=== PATIENT | female | born 1965 | race Caucasian/White ===

== ENCOUNTER 2017-09-28 14:45 | Outpatient (CLI) ==
--- NOTE | 2017-09-28 16:20 | DI ---
EXAM: Two views of the chest. History: Bronchitis. Comparison: None available. Findings: Heart size is normal. No focal consolidation. No appreciable pleural fluid and no pneumo thorax. No acute osseous abnormalities. Impression: No acute cardiopulmonary process
== END 2017-09-28 14:46 | disposition home or self-care (01) ==
LOC: RAD 14:45
PROVIDERS: ATTEND Family Medicine
DX: J40 Bronchitis, not specified as acute or chronic (principal)

== ENCOUNTER 2017-10-06 14:01 | Outpatient (CLI) ==
[2017-10-07 15:33] VITALS: BMI 32.8
== END 2017-10-06 14:02 | disposition home or self-care (01) ==
LOC: FCC-LAB 14:01
PROVIDERS: ATTEND Family Medicine
DX: R05 Cough (principal); J40 Bronchitis, not specified as acute or chronic; Z87.01 Personal history of pneumonia (recurrent)
CPT/HCPCS: 87804

== ENCOUNTER 2017-10-07 12:33 | Inpatient (IN) ==
--- NOTE | 2017-10-07 13:25 | ED.PDOC ---
General ED Provider: Dr. REJI JANE Chief Complaint: Respiratory Complaint Stated Complaint: cough, congestion Time Seen by Physician: 12:45 ( this is a chronic issue ) Mode of Arrival: Walk-In Information Source: Patient Exam Limitations: No limitations Primary Care Provider: JOSÉ ALSTON Nursing and Triage Documentation Reviewed and Agree: Yes Reviewed sepsis parameters & appropriate labs ordered?: Yes System Inflammatory Response Syndrome: Not Applicable Sepsis Protocol: For patient's 13 years and over: Temp is 96.8 and below OR 101 and greater Pulse >90 BPM Resp >20/minute Acutely Altered Mental Status Are patient's symptoms suggestive of a new infection, such as: -Pneumonia -Skin, Soft Tissue -Endocarditis -UTI -Bone, Joint Infection -Implantable Device -Acute Abdominal Infection -Wound Infection -Meningitis -Blood Stream Catheter Infection -Unknown System Inflammatory Response Syndrome: Not Applicable Respiratory Complaint Exam - Respiratory Complaint/Exam Onset/Duration: chronic worse today Symptoms Are: Resolved Timing: Intermittent Initial Severity: Mild Current Severity: Mild Location: Nose, Throat, Chest Character: Reports: Non-productive cough Aggravating: Reports: None Alleviating: Reports: Spontaneous resolution Associated Signs and Symptoms: Reports: URI, Nasal congestion. Denies: Rapid breathing, Dyspnea, Fever, Chills, Chest pain, Pleuritic chest pain, Wheezing, Hemoptysis, Dizziness, Calf pain, Calf swelling, Edema, Hoarseness, Sinus discomfort, Vomiting, Sore throat, Weight loss, Decreased oral intake, Increased thirst, Increased appetite, Increased urination Related History: Reports: Similar episode History of Healthcare-Acquired Pneumonia: No Related Surgical History: Reports: None Pulmonary Embolism Risk Factors: None Cardiac Risk Factors: Reports: None Pseudomonas Risk Factors: Reports: None Tuberculosis Risk Factors: Reports: None Status Asthmaticus Risk Factors: Reports: None Home Oxygen Use: No Recent Stress Test: No Recent Echo/LV Function: No Current Antibiotic Use: No Current Asthma Medication Use: No Respiratory Distress: None Inadequate Respiratory Effort: No Dysphagia Present: No Stridor Present: No JVD Present: No (onsteroid started today) Retractions: Not Present Diminished Breath Sounds: No Sinus Tenderness: None Differential Diagnoses: Pneumonia, Bronchitis, Lower Resp. Infection Review of Systems - Review Of Systems Constitutional: Reports: No symptoms Eyes: Reports: No symptoms Ears, Nose, Mouth, Throat: Reports: No symptoms Respiratory: Reports: Cough Cardiac: Reports: No symptoms GI: Reports: No symptoms : Reports: No symptoms Musculoskeletal: Reports: No symptoms Skin: Reports: No symptoms Neurological: Reports: No symptoms Endocrine: Reports: No symptoms Hematologic/Lymphatic: Reports: No symptoms All Other Systems: Reviewed and Negative Past Medical History - Past Medical History Previously Healthy: Yes Endocrine: Reports: None Cardiovascular: Reports: None Respiratory: Reports: None Hematological: Reports: None Gastrointestinal: Reports: None Genitourinary: Reports: None Neuro/Psych: Reports: None Musculoskeletal: Reports: None Cancer: Reports: None Last Menstrual Period: hysterectomy - Surgical History General Surgical History: Reports: None - Family History Family History: Reports: None - Social History Smoking Status: Never smoker Hx Substance Use: No Alcohol Screening: None Physical Exam - Physical Exam Appearance: Well-appearing, No pain distress, Well-nourished Eyes: MEHDI, EOMI, Conjunctiva clear ENT: Ears normal, Nose normal, Oropharynx normal Respiratory: Airway patent, Breath sounds clear, Breath sounds equal, Respirations nonlabored Cardiovascular: RRR, Pulses normal, No rub, No murmur GI/: Soft, Nontender, No masses, Bowel sounds normal, No Organomegaly Musculoskeletal: Normal strength, ROM intact, No edema, No calf tenderness Skin: Warm, Dry, Normal color Neurological: Sensation intact, Motor intact, Reflexes intact, Cranial nerves intact, Alert, Oriented Psychiatric: Affect appropriate, Mood appropriate Interpretation - Radiology Interpretation Radiology Interpretation By: Radiologist Physician Notification - Case Discussed Physician Notified: PMD Time of Notification: 13:39 (STATED PLEASE SEND TO OFFICE NOW) Critical Care Note - Critical Care Note Total Time (mins): 0 Course - Course Hematology/Chemistry: 10/07/17 13:05 10/07/17 13:05 Orders, Labs, Meds: Lab Review 10/07/17 10/07/17 10/07/17 13:00 13:05 13:05 WBC 13.73 H RBC 4.41 Hgb 13.0 Hct 39.4 MCV 89.3 MCH 29.5 MCHC 33.0 RDW Coeff of Isaias 13.5 Plt Count 274 Immature Gran % (Auto) 0.7 Neut % (Auto) 83.2 Lymph % (Auto) 11.1 [place] % (Auto) 4.5 Eos % (Auto) 0.1 Baso % (Auto) 0.4 Immature Gran # (Auto) 0.1 Neut # (Auto) 11.4 H Lymph # (Auto) 1.5 [place] # (Auto) 0.6 Eos # (Auto) 0.0 Baso # (Auto) 0.1 Puncture Site R rad O2 Saturation 98.0 ABG pH 7.567 H* ABG pCO2 23.0 L ABG pO2 80.0 L ABG HCO3 20.9 L ABG Total CO2 22 ABG Base Excess -1 Edmundo Test + FiO2 % 21.0 Sodium 137 Potassium 4.4 Chloride 102 Carbon Dioxide 21 Anion Gap 18.4 BUN 16 Creatinine 1.50 H Estimated GFR (MDRD) 36.00 BUN/Creatinine Ratio 10.66 Glucose 326 H Calcium 10.0 Total Bilirubin 0.9 AST 61 H ALT 55 Alkaline Phosphatase 119 H Total Protein 8.3 H Albumin 3.6 Globulin 4.7 Albumin/Globulin Ratio 0.77 Orders Category Date Time Status ABG DRAW REQUEST Stat CARDIO 10/07/17 12:51 Completed ABG Stat LAB 10/07/17 13:00 Completed CBC W/ AUTO DIFF Stat LAB 10/07/17 13:05 Completed COMPREHENSIVE METABOLIC PANEL Stat LAB 10/07/17 13:[address] CHEST W/O CONTRAST Stat RADS 10/07/17 12:55 Taken Vital Signs: Temp Pulse Resp BP Pulse Ox 10/07/17 12:34 97.2 F L 79 20 122/85 97 Departure - Departure Time of Disposition: 14:20 (02 sat 98% , abg negative for hypoxia , steroids was started by PMD today ) Disposition: HOME SELF-CARE Discharge Problem: Cough Instructions: Chronic Cough (ED) Condition: Good Pt referred to PMD for follow-up: Yes IPMP verified?: No Additional Instructions: Please call your Family Physician as soon as possible to schedule a follow-up appointment. SEE YOUR MD BRENNON Allergies/Adverse Reactions: Allergies ciprofloxacin [From Cipro] Adverse Reaction (Severe, Verified 10/07/17 12:40) rash,shsortness off air, headache Breathing problems, rash, headache. ciprofloxacin HCl [From Cipro] Adverse Reaction (Severe, Verified 10/07/17 12:40 ) rash, shortness of air Breathing problems, rash, headache. cephalexin monohydrate [From Keflex] Adverse Reaction (Verified 10/07/17 12:40) Breathing problems, headaches, rash Penicillins Adverse Reaction (Verified 10/07/17 12:40) Breathing problems, headache, rash Home Medications: Ambulatory Orders Oxycodone HCl/Acetaminophen [Oxycodon-Acetaminophen 7.5-325] 1 each PO TID 09/28 Oxycodone HCl/Acetaminophen [Oxycodone-Acetaminophen 10-325] 1 each PO BEDTIME 09/28/17 Pantoprazole Sodium [Protonix] 40 mg PO BID 09/28/17 Albuterol Sulfate [Proair Hfa] 2 puff IH Q4H PRN 10/07/17 Metformin HCl 500 mg PO DAILY 10/07/17 Tiotropium [place] [Spiriva] 2 puff IH DAILY 10/07/17 Disposition Discussed With: Patient, Family
[2017-10-07] MEDS ORDERED: DUONEB NEB STA (13:40)
[2017-10-07] MEDS ORDERED: TUSSIONEX PO STA (13:41)
[2017-10-07] MEDS ORDERED: TUSSIONEX ONE (13:42)
--- NOTE | 2017-10-07 13:42 | CT ---
EXAM: CT chest without contrast. HISTORY: Shortness of breath, cough, fever. COMPARISON: Radiograph 09/28/2017. TECHNIQUE: Multiple axial images of the chest were obtained without intravenous contrast. Images we re reformatted in the sagittal and coronal planes. FINDINGS: Evaluation for lymphadenopathy is limited by lack of intravenous contrast. Heart size is normal. No pericardial effusion identified. Ground-glass opacities with a few nodular foci of consolidation are seen in the posterior left lower lobe near the diaphragm. Mild ground-glass opacities seen in the posterior right lower lobe. No ple ural effusion or pneumothorax identified. Limited images of the upper abdomen demonstrate fatty infiltration of the liver. No acute osseous ab normality is detected. IMPRESSION: Left lower lobe, and possibly right lower lobe, pneumonia. Follow-up chest CT within 3 months recomm ended to assess for resolution.
[2017-10-07] MEDS ORDERED: PERCOCET 7.5-325 PO SCH (15:00)
[2017-10-07 15:33] VITALS: BMI 32.8
[2017-10-07] MEDS: PROTONIX PO SCH (16:09)
[2017-10-07] MEDS: PERCOCET 7.5-325 PO PRN (16:09)
--- NOTE | 2017-10-07 16:21 | PCM ---
- Chief Complaint Chief Complaint: 52 yr old WF admitted to inpatient bed for bilateral lower lobe pneumonia, multiple abx allergies, DM 2 uncontrolled, AKD, Obesity BMI 32.8. Complicated by chronic low back pain, chronic opiate use. GERD. Worsening cough. Worsening SOA. - History of Present Illness History of Present Illness: 52 yr old WF admitted to inpatient bed for bilateral lower lobe pneumonia, multiple abx allergies, DM 2 uncontrolled, AKD, Obesity BMI 32.8. present in room. Permission given to speak freely. The patient was last seen in my office 10/06/17 for worsening cough. Previously seen in my office on . History of the acute illness listed below. The patient was seen in the ER today and was admitted after CT chest showed Bilateral lower lobe pneumonia. She does not meet SIRS criteria. ER called me with WBC 13K w/ prominent neutrophilia, just started a steroid in last 24 hours. She is on doxy from an Rx that was given previously. Non smoker. She presented to me initially on 09/28 with URI. Dx initially early July w/ fever, cough, intermittently productive. Tested for flu and negative at that time. In fact, she reported that her sx were present since 2016. She was started with abx for treatment of possible pneumonia at that time by [facility] in [place] (We will try to get these records, called 10/07/17 3:58 pm and they are faxing) Patient told me at my last OV that she was dx via X-ray and was started on keflex for her pneumonia, she had an abnl GI reaction to this. Stomach upset, nausea and diarrhea. She told me that Pain management provider was upset by the abx and started her on doxycycline and she was on this for 7 days. She is allergic to Cipro/levaquin, she has done okay with erythromycin historically and we had talked about possible z felix for pulmonary inflammation. She completed the 7 day course of doxycycline BID, which was completed 08/11/17. Until she saw me on 09/28/17, she had not had any other f/u but sx never improved fully. She was on albuterol, this did not help. She reported inability to use steroids due to sugars/elevation/spikes. She noted >600 w/ last round steroids and prominent elevated sugars, hard to control. She presented to my office with 5 day history of worsening wheezing, URI and trouble breathing, declined steroids. Rhinorrhea, non tobacco user, sick with URI, sore throat, rhinorrhea, cough, sneezing as well. Talked in complete sentences. Repeated CXR on 09/28/17 and negative. Denied PND, orthopnea, COLE and hemoptysis. We added flonase. We talked about her DM and she noted improvement /stability. Only on metformin. Last A1C 7.5 06/2018. Reviewed her goal to be A1C of <7.0. She was dx with bronchitis, History of pneumonia, We reviewed heckerling rule and score of 0 points with LR of 0.12 and post test probability of 1% or less pneuomonia. We repeated CXR to rule this out. Modified wells criteria reviewed and low risk of PE. NO D-dimer was ordered. SHe was given Rx for spiriva Respimate, R/B/A to this was d/w her and she left office ambulatory. Exam mostly negative BMI 33.5, Temp 98.3, Pulse 72, BP 136/84 PO2 97%. She returned to my office 10/06/17 (yesterday) worsened and had started doxy from the pharmacy, which is reasonable. I discussed pneumonia is better treated with cephalosporin and doxy (or zithromax) and that she just wanted to use doxy. Cough f/u worsening, using spiriva 2 buffs daily as recommended, which did help quite a bit with her cough. She still is having wheezing. WE talked about steroids, she was worried about her BG. She really did not want oral GC but agreed. We again talked about changing abx around, she did not want this. Discussed ?cough variant asthma. Again non smoker. She did not want admission to hospital. We discussed IM decadron. We discussed prednisone and R /B/A to both and she chose prednisone. We increased her albuterol to q 4 hours use, we added prednisone 20mg daily x 5 days. I gave an Rx sample for jardiance with R/B/A and detailed discussion of risks to include DKA, Urinary infections and mycotic processes. Lungs with findings consistent with continued bronchitis , no consolidation, no PND, no orthopnea, normal full sentence conversations. Vitals yesterday pulse 82, temp 98.4, bmi 33.4, RR 16, 02 93% initially on RA, 91 after conversation. We talked about this and she did not want to go to hospital. Exam with cough, bronchial findings. We talked about the abx, we reviewed heckerling rule again and now has 3 points consistent with ~8% chance of pneumonia. We talked about repeat CXR. Talked about multiple abx allergies. I discussed monitor on doxy consider repeat CXR vs CT scan. Allergy to keflex. We gave short course of jardiance. Reviewed this with her added prednisone 20mg daily. She presented to ER today. Dr. Rea saw her in Er, called me with anxious patient with suspected bilateral pneuomnia. She was admitted to the floor, telemetry. Her breathing is unchanged from 09/28 and 10/06 visits. No peripheral edema. No overt SOA, still without chest pain. Lab Review: 1. CBC showed small white blood cell count elevation of 13.66 w/ neutrophilia, likely demargination from steroids. No anemia, normal platelets 2. Metabolic profile showed hyperglycemia of 326, Creatinine of 1.5 which is mildly OSCAR. Creatinine was 1.01 with GFR of 60 on 04/07/17. Sodium 137, K+ 4.4 , Cl 102, Gap of 18.4. alkaline phosphatase midlly elevated at 110. ast mild elevation of 61. 3. ABG showed pH 7.567, ABG pC02 23, Po2 80, Hc03 20.9. 4. Flu A/B rapid negative 10/06/17 Imaging Review: CT Chest 10/07/17 possible left and right lower lobe pneumonia CXR 09/28/17 No acute cardiopulmonary process Old records: [facility] [place] CXR 07/30/17 No pneumonia. Records from [facility] obtained. Presented 07/29/17 cough, non productive, wheezing on suraj as noted above. Pain management stated Ride side pneuomnia and needed to go to Er. Sudden onset. Delsym used. Chest discomfort. Fam hx of asthma, fatigue, fever. Dx pneumonia and given Rx for keflex 500 TID. WBC 12.0 Neutrophils 7.6 07/30/17. Review of Systems: Constitutional: COMPLAINS OF: Appetite change, Fatigue, Fever (intermittent, controlled.), DENIES: Excessive sweating, Night sweats, Weight gain, Weight loss Eyes: DENIES: Blurred vision, Corrective lenses, Diplopia, Eye irritation, Eye pain, Spots in vision, Vision loss Ears, nose, mouth, throat: COMPLAINS OF: Hoarseness, Nasal Congestion, Nasal discharge, Postnasal drainage, Sneezing, Sore throat, DENIES: Bleeding gums, Dental pain, Ear pain, Facial pain, Hearing loss, Mouth lesions, Nasal obstruction, Nosebleeds, Swelling gums, Tender gums, Tinnitus, Vertigo Other ear, nose, mouth, throat Ear pressure, without pain Cardiovascular: DENIES: Chest pain, Claudication, Decr. exercise tolerance, Exertional dyspnea, Leg ulcers, Orthopnea, Palpitations, Peripheral edema, Syncope Respiratory: COMPLAINS OF: Cough, Pleuritic pain (Bilateral lower lobes. Prominent cough, sputum production. NO hemoptysis. ), Shortness of breath, Sputum production, Wheezing, DENIES: Apneas, Hemoptysis, Snoring Gastrointestinal: COMPLAINS OF: Abdominal pain (mild with coughing), DENIES: Black stools, Bloating, Bloody stools, Change in bowel habits, Constipation, Diarrhea, Dysphagia, Food intolerance, Nausea, Reflux/heartburn, Vomiting Musculoskeletal: COMPLAINS OF: Back pain (chronic back pain, chronic pain in left hip. Chronic antalgic gait. Due for surgery in next few months. ), DENIES: Joint pain, Joint swelling, Limited range of motion, Muscle aches, Muscle weakness, Neck Pain, Stiffness Neurologic: COMPLAINS OF: Abnormal gait, Headache (worse with coughing), DENIES : Dizziness, Focal weakness, Incoordination, Memory problems, Numbness, Seizures , Slurred speech, Tremor Psychiatric: COMPLAINS OF: Anxiety, Sadness/tearfulness, Fear, Sleep Disturbances DENIES: Decreased concentration, Irritability, Panic attacks Endocrine: DENIES: Abnorml menstrual pattern, Polydipsia, Polyphagia, Polyuria Hematologic/lymphatic: DENIES: Bleeding tendencies, Bruising, Lymphadenopathy, Recurrent infections Allergic/immunologic: DENIES: Eczema, Seasonal allergies, Urticaria - Past Medical History Past Medical History: Chronic Back pain, DM 2 uncontrolled, Exposure to Hep C, GERD, Obesity BMI 32. - Past Surgical History Past Surgical History: Appendectomy, back surgery x 2, cholecystectomy, hysterectomy, lumbar laminectomy 06/2016. - Allergies Allergies/Adverse Reactions: Allergies Allergy/AdvReac Type Severity Reaction Status Date / Time ciprofloxacin [From Cipro] AdvReac Severe rash,shsortness Verified 10/07/17 12: 40 off air, headache ciprofloxacin HCl AdvReac Severe rash, Verified 10/07/17 12:40 [From Cipro] shortness of air cephalexin monohydrate AdvReac Abdominal Verified 10/07/17 14:19 [From Keflex] Pain Penicillins AdvReac Unknown Verified 10/07/17 14:19 - Medications Medications: Medications Generic Name Dose Route Start Last Admin Trade Name Freq PRN Reason Stop Dose Admin Albuterol/Ipratropium 1 vial 10/07/17 18:00 Duoneb NEB RTQ6H DARREL Non-Formulary Medication 15 mg 10/07/17 21:00 Oxycodone Hcl [Oxycontin] PO BEDTIME DARREL Oxycodone/Acetaminophen 1 tab 10/07/17 15:36 Percocet 7.5-325 PO TID PRN pain Pantoprazole Sodium 40 mg 10/07/17 17:00 Protonix PO BIDAC DARREL - Family History Past Family History: Mother CAD. Father No known problems. Sister CAD, Diabetes. Sister Hyperlipidemia. Brother Alcohol Abuse. MGM Diabetes, Heart disease, stroke. MGF No known medical problems. PGM DM, HTN,. PGF Cancer - Social History Past Social History: never smoker. . [employer]. - Vital Signs Temperature: 97.4 F Pulse Rate: 60 Respiratory Rate: 20 Blood Pressure: 122/85 O2 Sat by Pulse Oximetry: 95 - Body Composition Height: 5 ft 8 in Weight: 216 lb Body Mass Index (BMI): 32.8 - Physical Examination HEENT: General Details Constitutional General appearance: subacute illness, unchanged from my last OV 10/06/17. Nutritional status: Overweight BMI 32.8 Orientation: alert and oriented x4 Skin Skin: Positive: dry, normal color, warm, Negative: skin rash Head, Eyes, Ears, Nose, Throat Head: normocephalic/atraumatic Eyes: PERRL, conjunctivae clear, EOM intact, no nystagmus Eyes - details: Left eyelid: FINDINGS: normal Right eyelid: FINDINGS: normal Left conjunctiva: FINDINGS: normal Right conjunctiva: FINDINGS: normal Ears, nose, mouth, throat: no ear deformities, no otic drainage, normal nostrils, TM mobility normal, TMs normal, no sinus tenderness Ears: Left ear deformity: none Right ear deformity: none Left external auditory canal: FINDINGS: Right external auditory canal: FINDINGS: Left tympanic membrane: FINDINGS: normal,normal, minimal fluid most visible anterior segment/quadrant. Right tympanic membrane: FINDINGS: normal, normal, minimal fluid most visible anterior segment/quadrant. Nose/sinuses: Nasal cavity: FINDINGS: boggy, erythema, normal, clear drainage. Nasal discharge: FINDINGS: clear Sinuses: NEGATIVE FOR: frontal tenderness, maxillary tenderness Neck Neck: FINDINGS: normal, NEGATIVE FOR: adenopathy, asymmetry, limitation of motion, tenderness, thyroid abnormality Respiratory Details: Coarse sounding aeration throughout lung abdi. No egophany, no whispered pectoriloquy. She has no tactile fremitus. Prominent coarse sounds, adventitious sounds, mucus plugging, some improvement post cough. Respiratory effort: FINDINGS: audible wheeze (upper and lower airway), no stridor. No inspiratory wheeze. NEGATIVE FOR: still without labored breathing, not using pursed lips, no retractions, no stridor, no use accessory muscles Auscultation: FINDINGS: diminished throughout, rhonchi, wheezes, +Rales but scattered. (+SHE HAS STARTED DOXYYCLINE) Percussion: FINDINGS: normal Tactile fremitus: absent Sounds and cough still seem to be mostly present within the upper airway, I still did not appreciate a pneumonia on this patient. RR normal, O2 saturation mildly diminished but still >90. HR fine and BP fine. <3% chance of pneumonia based on vitals. Cardiovascular Rhythm: regular Heart sounds: NORMAL: S1, S2 Abnormal heart sounds: NEGATIVE FOR: S3 gallop, S4 gallop, click, murmur, rub Abdomen/Groin Abdomen: FINDINGS: normal appearance, soft, NEGATIVE FOR: bruits, distention, hernia, inguinal adenopathy, mass, organomegaly, rigidity, tenderness Bowel sounds: normal Abdominal palpation: Left upper quadrant: nontender Right upper quadrant: nontender Left lower quadrant: nontender Right lower quadrant: nontender Periumbilical: nontender Epigastric: nontender Suprapubic: nontender Extremities Extremities: NEGATIVE FOR: clubbing, cyanosis, edema Peripheral pulses: Pulse exam of foot: Performed Left radial: normal Right radial: normal Left dorsalis pedis: normal Right dorsalis pedis: normal Edema: Left lower extremity: none Right lower extremity: none Calves: Symmetrical, non tender. Musculoskeletal Spine, ribs, and pelvis: Spine, ribs, pelvis: FINDINGS: Tender bilateral paraspinals of lumbar and thoracic spine. STraight leg raise negative. Antalgic gait. NEGATIVE FOR: asymmetry Range of motion: Reduced Stability: FINDINGS: normal Muscle strength/tone: FINDINGS: normal Upper extremity- Symmetrical posture. No visible deformity. Normal sensation along medial and lateral upper extremity proximally and distally.~ NO tenderness overlying shoulder, lateral/medial epicondyle. [employer] 5/5 and strength 5/5 bilateral UE.~ Elbow palpated, no tenderness overlying olecranon.~ Normal supination, pronation to active/passive ROM and to resisted rotation. Bicep insertion/tricep insertion appear normal without obvious pathology. Rotator cuff evaluated and intact. Normal wrist ROM bilaterally. Normal hand movement, intrinsic muscles of hands normal. No tenderness to palpation of hands/wrists/ elbows. Lower Extremity: Hip pain, buttock pain on left. Chronically. Due for surgery to her lumbar spine. Neurologic Cranial nerves II-XII intact: Yes Deep tendon reflexes: Biceps: normal Triceps: normal Brachioradialis: normal Knee: normal to mildly reduced 1+ reflexes symmetrical. Ankle: normal Sensation: Light touch: normal, hallux strength normal bilaterally. Soft Touch: intact. Gait: Gait: FINDINGS: antalgic. Psychiatric Mental status: grossly normal to slightly worried/depressed. Anxious. NO delusions, no hallucinations. Affect: normal Judgment: normal - Lab/Tests/Diagnostic Imaging Lab/Tests/Diagnostic Imaging: As noted above CBC, CMP, ABG, CT chest, REviewed CXR from 09/28 and from 07/30. REviewed note from 07/30/17 from [facility]. - Assessment (1) Pneumonia of both lower lobes Status: Acute Code(s): J18.9 - PNEUMONIA, UNSPECIFIED ORGANISM SNOMED Code(s ): 574602178 Qualifiers: Pneumonia type: due to unspecified organism Qualified Code(s): J18.9 - Pneumonia, unspecified organism (2) Type 2 diabetes, HbA1c goal < 7% Status: Acute Code(s): E11.9 - TYPE 2 DIABETES MELLITUS WITHOUT COMPLICATIONS SNOMED Code(s): 98836581 (3) OSCAR (acute kidney injury) Status: Acute Code(s): N17.9 - ACUTE KIDNEY FAILURE, UNSPECIFIED SNOMED Code (s): 55870830 (4) Leukocytosis Status: Acute Code(s): D72.829 - ELEVATED WHITE BLOOD CELL COUNT, UNSPECIFIED SNOMED Code(s): 182953744 Qualifiers: Leukocytosis type: other Qualified Code(s): D72.828 - Other elevated white blood cell count (5) GERD (gastroesophageal reflux disease) Status: Acute Code(s): K21.9 - GASTRO-ESOPHAGEAL REFLUX DISEASE WITHOUT ESOPHAGITIS SNOMED Code(s): 842591355 Qualifiers: Esophagitis presence: without esophagitis Qualified Code(s): K21.9 - Gastro -esophageal reflux disease without esophagitis (6) Chronic low back pain Status: Acute Code(s): M54.5 - LOW BACK PAIN SNOMED Code(s): 154518807 Qualifiers: Back pain laterality: bilateral Sciatica presence: with sciatica Sciatica laterality: sciatica of left side Qualified Code(s): M54.42 - Lumbago with sciatica, left side; G89.29 - Other chronic pain; G89.29 - Other chronic pain (7) Chronic prescription opiate use Status: Acute Code(s): Z79.891 - ADJUNCT INSTRUCTOR (CURRENT) USE OF OPIATE ANALGESIC SNOMED Code(s): 772071902 (8) Allergy to multiple antibiotics Status: Acute Code(s): Z88.1 - ALLERGY STATUS TO OTHER ANTIBIOTIC AGENTS STATUS SNOMED Code(s): 67500446 - Plan Plan: 1. Pneumonia: Heckerling Rule reviewed and she had 8% chance of pneumonia. Went to ER and Dx with pneumonia. Multiple abx allergies. GI upset/ intolerance with keflex 07/2017. Reviewed [facility] documents and patient had reaction to the abx and it was not needed as this class of abx should not have been used to treat the pneumonia that they dx. CXR at that time was clear. CT today showed pneumonia. WE will start her on cefdinir PO and azithromycin IV. I talked with pharmacy and the 3rd gen cephalosporins have enough side chain difference that they should not cross react. Patient will get duonebs q6 hours as any more than this saturates the receptors and is not beneficial. We will continue the prednisone for another few days. Steroids are controversial and of ? benefit as they can cause rebound Hyperglycemia as seen in this patient. We had talked about asthmatic process and with her wheezing I will opt for a few days of steroids. Risks to benefit ratio discussed with the patient. Does not meet SIRS criteria. - IV Azithromycin 500 mg daily - PO Cefdinir 300 BID - CBC/CMP in am - Blood cultures x 2 - Close monitor for reaction to abx. - Telemetry - Flutter valve if able. 2. Diabetes 2 A1C goal: I will check BHB, Acetone for ketones as she was started on jardiance. I was called at 527 pm with patient having 3+ glucose and 2+ ketones on urine. We have stopped the jardiance. She is on fluids, she will be getting insulin 10 units of lantus daily. We figured 0.2-0.3 units/kg/ day fpr 98.6 kg female to be ~29-30 units. I will start with 10 units tonight and I will add 0.05 units/kg/meal of rapid acting insulin. I rounded this down to 4 units with each meal and then a correction factor of 1 unit for 180-200, 2 units for 201-250, 3 units for 251-300 and 4 units for >301. Call if >400. I will re-evaluate the patient in the am. Hold metformin for now. Creatinine is 1.5,baseline is 1.0. Goal for hospitalized patient is preprandial of <140, < 180 random. ADA diet. IO Q shift. - A1C - Urine: Ketones +, she is on jardiance - Glucose goals <140 prepandial, random <180. - I+O q shift. - Consider changing fluids as needed. Re-eval K+ in am. She is not in DKA, ABG okay. Very minimal Gap on CMP. 3. Chronic back Pain: - Resume home meds. - NO extra tylenol - NO NSAIDS. 4. OSCAR: Cr Clearance based of [place] is 66.32 ml/min. Baseline creatinine is 1.0 based on Cr late 2016. 5. Anxiety: Worse due to the recent breathing issues. The patient will get benzo only PRN. I am aware of risks of benzo and opiate. We will monitor. - Ativan 0.5mg PO BID PRN anxiety. 6. GI Prophy: - Resume home Protonix BID. 7. DVT Prophy: She has >1 risk factor for DVT renal disease and obesity and immobility. 10-80% risks, consensus statement supports use of chemical VTE prophy. - Lovenox 40 mg subcutaneous daily. - Out of bed. 8. Diet: - ADA diet 1800 kcal, bedtime snack. 9. ketonuria: Suspect reaction with jardiance, I will not continue this agent. - NS and insulin for now. - MOnitor glucose. 10 Leukocytosis - Suspect demargination. Monitor CBC. Admit to inpatient, expected length of stay ~2-3 days. We will monitor improvement. Reviewed Er note, [facility] note, CXR from 07/30/17 , 09/28/17, talked with ER physician personally on phone. High risk, pneumonia, dx by CT, reviewed imaging, reviewed labs, outlying records and talked with another provider. Sum total of 80 minutes spent on admission to hospital.
[2017-10-07] MEDS ORDERED: ATIVAN PO PRN (16:46)
[2017-10-07] MEDS: DUONEB NEB SCH ×2 (16:56→22:55)
[2017-10-07] MEDS: SODIUM CHLORIDE 1,000 ML IV SCH (17:08)
[2017-10-07] MEDS: ZITHROMAX 500 MG in SODIUM CHLORIDE 250 ML IV SCH (17:08)
[2017-10-07] MEDS ORDERED: HUMALOG SUBCUT SCH (17:30)
[2017-10-07] MEDS ORDERED: DUONEB NEB SCH (18:00)
[2017-10-07] MEDS ORDERED: PERCOCET 10-325 PO SCH (21:00)
[2017-10-07] MEDS: OMNICEF PO SCH (21:19)
[2017-10-07] MEDS: NON-FORMULARY MEDICATION (Oxycodone Hcl [Oxycontin] 15 MG) PO SCH (21:19)
[2017-10-07] MEDS: LANTUS SUBCUT SCH (21:19)
[2017-10-08] MEDS: DUONEB NEB SCH ×4 (05:02→20:55)
[2017-10-08] MEDS: PROTONIX PO SCH ×2 (05:41→17:19)
[2017-10-08] MEDS ORDERED: ALBUTEROL 0.083% NEB NEB PRN ×2 (07:24→23:42)
[2017-10-08] MEDS ORDERED: PREDNISONE PO SCH (08:00)
[2017-10-08] MEDS ORDERED: HUMALOG SUBCUT PRN (08:00)
--- NOTE | 2017-10-08 08:02 | PCM.PROG ---
Subjective: Mrs. Shipley was resting comfortably upon evaluation this am at 7:15 am. I talked with nursing who noted she had a good night and reported improvement of her breathing/cough and urination. I/0 Reviewed and .77 cc/kg/hr output over the last 12 hours. She has a net of 1526ml + balance with PO and IV. We reviewed telemetry and has remained NSR. The patient has been receiving neb treatments 05:02 today and 22:55, 1656 and 1440 yesterday. These are helping. Pneumonia: CT reviewed. Fatty liver also noted and d/w patient in light of her DM and metformin self discontinuation. We talked about her breathing, continue duonebs QID, will add albuterol q 4 hours PRN. We talked about incen spirom and we discussed the need to take deep breaths as the CT chest can also represent atelectasis or closure of alveoli. NO flutter device was available. She is to be up as much as possible, deep breaths encouraged. So far no reaction to the cefdinir, which is a good sign. Per pharmacy, it has enough of a difference to keflex that it should not cause any issues. Zithromax has been good, tele has been normal. We talked about stopping the routine fluids, allow her to drink, up ad francisca. Switch to oral abx tomorrow and home tomorrow for a total of 5 days of oral abx. We will check urine antigen for strep pneumonia. O2 has been 98% on RA. OSCAR: Improving her urine output is stable and creatinine is improving. Drinking more water per her report. She is urinating well, good output of 0.7cc/kg/hr which is reasonable for adults (0.5-1cc/kg/hr). Improving. DM2: During discussion today she states she will not use insulin as outpatient. She has not been using metformin for 1.5-2 months. She was on steroids in july and was up in the 600 range and this, per her report, explains the elevated sugars. The patient and I had a 15 minute discussion on need to control DM. Latest APC guidelines allow A1C of 7-8% for most people. I discussed that this is still new and controversial. 1 day of jardiance led to ketones in urine. She noted she had not been drinking as much, she had been using more ibuprofen due to her back pain. Her urine output in hospital has been great. However, I still discussed with her issues with NSAIDS, issues with dehydration and now the jardiance acts as a diuretic as well. I will not use this as outpt for now. She cannot tolerate the januvia. I have added this to the adv reaction column. A1C suggests DM is not controlled. Does not want any injectible at discharge. I may send her home on glipizide XL tomorrow 2.5mg daily to take with first meal of the day. R/B/A to this discussed with patient today. Insulin 10 units lantus nightly and 2-10 units of humalog order was changed. 4 units with each meal and then adjust 1 unit for approximately every 50 >200 ( see order). Eating well, databases computer consultant to meet with her today. Back pain: Using home meds, stable. Rates pain at 6-8/10. Worse with prolonged sitting and posture changes. Due for surgery in next 1 month for tightening of screws and removal of bone spurs. She has continued home meds. Anxiety: better, less apprehensive. No c/o to nursing through the night. She declined the benzo for anxiety. Lab Review: Acetone Negative BHB: pending UA: sent for culture. 3+ glucose and 2+ ketones (serum acetone negative). A1C: 8.5 CBC: Hgb has dropped from 13 to 11.20, WBC has dropped from 13.73 to 12.80 and platelets have dropped from 274 to 261. CMP: Potassium remains stable at 4.4 (not replaced), creatinine has improved from 1.50 to 1.13 with fluids. Alk phos now normal, AST now normal. Glucose 326 to 175. Accucheck 0609 191. Progress: She is feeling better and excited to go home tomorrow. Cough persists but better. SOA persists but better. Still modified wells criteria support low suspicion for PE/DVT. We do have her on prophy VTE lovenox. Disposition likely to home tomorrow. Objective: Vitals: T=97.0 F, P=63, R=18, OJ=144/76, SPO2=99 General : General appearance: acutely ill but improving. Calm, stable and mood/affect congruent and normal. Nutritional status: Overweight/BMI 32.8 Orientation: alert and oriented x4 Skin: Positive: dry, normal color, warm, Negative: skin rash, no new rashes, no ulcers. Head: normocephalic/atraumatic Eyes: PERRL, conjunctivae clear, EOM intact, no nystagmus Eyes - details: Left eyelid: FINDINGS: normal Right eyelid: FINDINGS: normal Left conjunctiva: FINDINGS: normal Right conjunctiva: FINDINGS: normal Nose/sinuses: Nasal cavity: FINDINGS: boggy, erythema, normal Nasal discharge: FINDINGS: clear Sinuses: NEGATIVE FOR: frontal tenderness, maxillary tenderness Neck: FINDINGS: normal, NEGATIVE FOR: adenopathy, asymmetry, limitation of motion, tenderness, thyroid abnormality Respiratory effort: FINDINGS: audible wheeze (upper airway) but improved today. She is shallowly inspiring. We demonstrated the incentive spirometer today. Effort normal. I:E ratio closer to 1:1 today. No pursed lip breathing. No accessory muscle use. NEGATIVE FOR: labored, pursed lips, retractions, stridor, uses accessory muscles Auscultation: FINDINGS: remains diminished throughout,rhonchi, wheezes, NEGATIVE FOR: crackles/rales, diminished at base, prolonged expiration, prolonged inspiration Percussion: FINDINGS: normal Tactile fremitus: absent Cardiovascular Rhythm: regular Heart sounds: NORMAL: S1, S2 Abnormal heart sounds: NEGATIVE FOR: S3 gallop, S4 gallop, click, murmur, rub Abdomen: FINDINGS: normal appearance, soft, NEGATIVE FOR: bruits, distention, hernia, inguinal adenopathy, mass, organomegaly, rigidity, tenderness Bowel sounds: normal Abdominal palpation: Left upper quadrant: nontender Right upper quadrant: nontender Left lower quadrant: nontender Right lower quadrant: nontender Periumbilical: nontender Epigastric: nontender Suprapubic: nontender Extremities: NEGATIVE FOR: clubbing, cyanosis, edema Peripheral pulses: Pulse exam of foot: Performed Left radial: normal Right radial: normal Left dorsalis pedis: normal Right dorsalis pedis: normal Edema: Left lower extremity: none Right lower extremity: none +Varicosities no edema. Spine, ribs, and pelvis: Spine, ribs, pelvis: Tender paraspinals left Lower lumbar. NO rash, no abnormality. Straight leg raise negative. tenderness Range of motion: Reduced, stiff this am. Cranial nerves II-XII intact: Yes Deep tendon reflexes: Knee: normal Ankle: normal Sensation: Light touch: normal Gait: Gait: In bed did not assess. Mental status: grossly normal, not anxious today. Calmer, better respirations. Affect: normal Judgment: normal (1) Pneumonia of both lower lobes Status: Acute Code(s): J18.9 - PNEUMONIA, UNSPECIFIED ORGANISM SNOMED Code(s ): 292043262 (2) Type 2 diabetes, HbA1c goal < 7% Status: Chronic Code(s): E11.9 - TYPE 2 DIABETES MELLITUS WITHOUT COMPLICATIONS SNOMED Code(s): 69784973 (3) OSCAR (acute kidney injury) Status: Resolved Code(s): N17.9 - ACUTE KIDNEY FAILURE, UNSPECIFIED SNOMED Code(s): 99800424 (4) Leukocytosis Status: Acute Code(s): D72.829 - ELEVATED WHITE BLOOD CELL COUNT, UNSPECIFIED SNOMED Code(s): 902545602 (5) GERD (gastroesophageal reflux disease) Status: Chronic Code(s): K21.9 - GASTRO-ESOPHAGEAL REFLUX DISEASE WITHOUT ESOPHAGITIS SNOMED Code(s): 188941024 (6) Chronic low back pain Status: Chronic Code(s): M54.5 - LOW BACK PAIN SNOMED Code(s): 189312669 (7) Chronic prescription opiate use Status: Chronic Code(s): Z79.891 - MCC (CURRENT) USE OF OPIATE ANALGESIC SNOMED Code(s): 373110710 (8) Allergy to multiple antibiotics Status: Chronic Code(s): Z88.1 - ALLERGY STATUS TO OTHER ANTIBIOTIC AGENTS STATUS SNOMED Code(s): 26873019 Plan: 1. Pneumonia: Improving, tolerating cefdinir and IV azithromycin. I will use 1 more dose of IV azithromax today. Tele monitored and NSR. Switch to oral abx after today and if she continues to improve, home tomorrow on 5 days total abx. - Continue cefdinir - Continue Zithromax, change to PO tomorrow - 5 days total abx - Continue albuterol q 4 hours PRN and Duoneb 4x daily. 2. DM: A1C was 8.5. She is adamant that she not use any insulin out of hospital. W/ improvement in renal function we will resume metformin tomorrow. She will also be d/c on glipizide XL 2.5mg daily with meals, keep sugar log and see me back in clinic 1 week later with the log. We will talk about other agents. I would not use jardiance nor januvia based on previous rx. We did talk about tanzeum, she is not interested in injectibles, we also talked about insulin with the same result. Goal initial a1c is 7-8 based on new APC guidelines. ADA still follows accord trial and I still would like her ~7%. - Dietitican to meet with he rtoday. - Continue AC/HS accucheck - Continue lantus 10 QHS - Continue Humalog schedule/correction. - NO e/o DKA - BHB ketone still pending. - UA this afternoon to see if urine ketones improving. 3. OSCAR: Appears to be back near baseline. Improving. She reported increased NSAID use due to back pain. WE talked about this today and discussed R/B/A to the NSAIDS on renal function. She was also somewhat dehydrated. I will stop fluids as she is having some hemodilution of her CBC/CMP. K+ and sodium are stable. Alk phos is better, Cr is better. OVerall she feels better. - CBC in am -CMP in am 4. Back pain: Chronic problem, using home meds. Unchanged. 5. DVT prophy: Lovenox 40mg daily 6. GERD: chronic PPI at home, not using for prophy but continued home meds. R/ B/A to GERD (pneumonia, Cdiff) discussed with patient. 7. Anxiety: Stable, not using benzo that has been ordered PRN. 8. Disposition: At this time I expect to change to oral abx for tomorrow and d/ c home in the am. Still awaiting Urinalysis for the afternoon. Still awaiting urine strep pneumo ag.
[2017-10-08] MEDS: OMNICEF PO SCH ×2 (08:13→20:59)
[2017-10-08] MEDS: ZITHROMAX 500 MG in SODIUM CHLORIDE 250 ML IV SCH (08:14)
[2017-10-08] MEDS: LOVENOX SUBCUT SCH (08:14)
[2017-10-08] MEDS: PERCOCET 7.5-325 PO PRN ×2 (08:31→17:22)
[2017-10-08] MEDS: HUMALOG SUBCUT SCH ×3 (08:32→17:22)
[2017-10-08] MEDS: SODIUM CHLORIDE 1,000 ML IV SCH (08:33)
[2017-10-08] MEDS: LANTUS SUBCUT SCH (21:07)
[2017-10-08] MEDS: NON-FORMULARY MEDICATION (Oxycodone Hcl [Oxycontin] 15 MG) PO SCH (21:08)
[2017-10-09] MEDS: DUONEB NEB SCH (05:05)
[2017-10-09] MEDS: PROTONIX PO SCH (05:47)
--- NOTE | 2017-10-09 07:41 | PCM.DC ---
Final Diagnosis: 1. Pneumonia bilateral lower lobes 2. Multiple antibiotic allergies/multiple classes. 3. Acute Kidney insufficiency/injury 4. Diabetes 2 A1C goal <7%, uncontrolled 5. Anemia 6. Leukocytosis: Resolved 7. Chronic low back pain 8. Chronic prescription opiate use 9. GERD 10. BMI 32.9 obesity. 11. Overnight oxygenation decrease 12. Subacute cough. Consult: Electrical [employer] (1) Pneumonia of both lower lobes Status: Acute Code(s): J18.9 - PNEUMONIA, UNSPECIFIED ORGANISM SNOMED Code(s ): 252237043 Qualifiers: Pneumonia type: due to unspecified organism Qualified Code(s): J18.9 - Pneumonia, unspecified organism (2) Type 2 diabetes, HbA1c goal < 7% Status: Chronic Code(s): E11.9 - TYPE 2 DIABETES MELLITUS WITHOUT COMPLICATIONS SNOMED Code(s): 71501866 (3) OSCAR (acute kidney injury) Status: Resolved Code(s): N17.9 - ACUTE KIDNEY FAILURE, UNSPECIFIED SNOMED Code(s): 84896768 (4) Leukocytosis Status: Resolved Code(s): D72.829 - ELEVATED WHITE BLOOD CELL COUNT, UNSPECIFIED SNOMED Code(s): 093783782 Qualifiers: Leukocytosis type: other Qualified Code(s): D72.828 - Other elevated white blood cell count (5) GERD (gastroesophageal reflux disease) Status: Chronic Code(s): K21.9 - GASTRO-ESOPHAGEAL REFLUX DISEASE WITHOUT ESOPHAGITIS SNOMED Code(s): 941493017 Qualifiers: Esophagitis presence: without esophagitis Qualified Code(s): K21.9 - Gastro -esophageal reflux disease without esophagitis (6) Chronic low back pain Status: Chronic Code(s): M54.5 - LOW BACK PAIN SNOMED Code(s): 627847008 Qualifiers: Back pain laterality: bilateral Sciatica presence: with sciatica Sciatica laterality: sciatica of left side Qualified Code(s): M54.42 - Lumbago with sciatica, left side; G89.29 - Other chronic pain; G89.29 - Other chronic pain (7) Chronic prescription opiate use Status: Chronic Code(s): Z79.891 - LONGTERM (CURRENT) USE OF OPIATE ANALGESIC SNOMED Code(s): 949990614 (8) Allergy to multiple antibiotics Status: Chronic Code(s): Z88.1 - ALLERGY STATUS TO OTHER ANTIBIOTIC AGENTS STATUS SNOMED Code(s): 04240837 (9) Normocytic anemia Status: Acute Code(s): D64.9 - ANEMIA, UNSPECIFIED SNOMED Code(s): 211387919 Reason for Hospitalization: Pneumonia with multiple antibiotic allergies and OSCAR. Hyperglycemia. Prolonged cough. Prognosis at Discharge: Good, stable, discharge home today. Improved respirations. Improved DM. Anemia to be monitored as outpatient. Condition at Discharge: Physical examination 10/09/17. General appearance: acutely ill, but improving. Slept well overnight, in bedside chair upon entry. Full sentences, not on oxygen, no edema. Happy, breathing better, cough better, ready to go home. Nutritional status: Overweight BMI 32.9. Orientation: alert and oriented x4 Skin: Positive: dry, normal color, warm, Negative: skin rash Head: normocephalic/atraumatic Eyes: PERRL, conjunctivae clear, EOM intact, no nystagmus Eyes - details: Left eyelid: FINDINGS: normal Right eyelid: FINDINGS: normal Left conjunctiva: FINDINGS: normal Right conjunctiva: FINDINGS: normal Ears, nose, mouth, throat: no ear deformities, no otic drainage, normal nostrils, TM mobility normal, TMs normal, no sinus tenderness Ears: Left ear deformity: none Right ear deformity: none Left external auditory canal: FINDINGS: normal Right external auditory canal: FINDINGS: normal Left tympanic membrane: FINDINGS: normal Right tympanic membrane: FINDINGS: normal Nose/sinuses: Nasal cavity: FINDINGS: boggy, erythema, posterior nasal drainage is present. Nasal discharge: FINDINGS: clear Sinuses: NEGATIVE FOR: frontal tenderness, maxillary tenderness Neck: FINDINGS: normal, NEGATIVE FOR: adenopathy, asymmetry, limitation of motion, tenderness, thyroid abnormality Details Respiratory effort: FINDINGS: audible wheeze is better. Effort is better. Auscultation: FINDINGS: Markedly improved aeration all abdi. Breathing deeper , clearer sounds. More localized rhonchi, clear with cough suggestive of mucus plugging. I did not appreciate any wheezes today. NEGATIVE FOR: crackles/rales, Percussion: FINDINGS: normal Tactile fremitus: absent Egophany and whispered pectoriloquy negative. Rhythm: regular Heart sounds: NORMAL: S1, S2 Abnormal heart sounds: NEGATIVE FOR: S3 gallop, S4 gallop, click, murmur, rub Abdomen: FINDINGS: normal appearance, soft, NEGATIVE FOR: bruits, distention, hernia, inguinal adenopathy, mass, organomegaly, rigidity, tenderness Bowel sounds: normal Abdominal palpation: Left upper quadrant: nontender Right upper quadrant: nontender Left lower quadrant: nontender Right lower quadrant: nontender Periumbilical: nontender Epigastric: nontender Suprapubic: nontender Extremities: Positive: Varicosities. NEGATIVE FOR: clubbing, cyanosis, edema, no swelling of legs/ankles. Peripheral pulses: Pulse exam of foot: Performed Left radial: normal Right radial: normal Left dorsalis pedis: normal Right dorsalis pedis: normal Edema: Left lower extremity: none Right lower extremity: none Cranial nerves II-XII intact: Yes Gait: Gait: FINDINGS: normal. To be walked with nursing this am. Mental status: grossly normal Affect: normal Judgment: normal Medications at Discharge: Ambulatory Orders Medication Instructions Recorded Oxycodone HCl/Acetaminophen 1 each PO TID 09/28/17 [Oxycodon-Acetaminophen 7.5-325] Pantoprazole Sodium [Protonix] 40 mg PO BID 09/28/17 Albuterol Sulfate [Proair Hfa] 2 puff IH Q4H PRN 10/07/17 Oxycodone HCl [Oxycontin] 15 mg PO BEDTIME 10/07/17 Tiotropium Blandon [Spiriva] 2 puff IH DAILY 10/07/17 Azithromycin 500 mg PO DAILY 2 Days #2 tablet 10/09/17 Cefdinir [Omnicef] 300 mg PO Q12HR 2 Days #4 capsule 10/09/17 Glipizide [Glipizide Xl] 2.5 mg PO DAILY 30 Days #30 10/09/17 tab.er.24 Metformin HCl 1,000 mg PO BID 30 Days #60 tablet 10/09/17 Lab/Diagnostics: Laboratory Last Values WBC 9.50 K/ul (4.6-10.2) 10/09/17 04:30 RBC 3.52 10^6/ul (4.20-5.40) L 10/09/17 04:30 Hgb 10.4 g/dl (12.0-16.0) L 10/09/17 04:30 Hct 33.3 % (37.0-47.0) L 10/09/17 04:30 MCV 94.6 fl (81.0-99.0) 10/09/17 04:30 MCH 29.5 pg (27.0-31.0) 10/09/17 04:30 MCHC 31.2 (31.8-35.4) L 10/09/17 04:30 RDW Coeff of Isaias 13.9 % (11.6-14.8) 10/09/17 04:30 Plt Count 249 10^3/uL (140-440) 10/09/17 04:30 Immature Gran % (Auto) 0.7 % (0.0-5.0) 10/09/17 04:30 Neut % (Auto) 40.9 10/09/17 04:30 Lymph % (Auto) 46.7 (10.0-50.0) 10/09/17 04:30 Spink % (Auto) 8.5 (0-10) 10/09/17 04:30 Eos % (Auto) 2.6 % (0.0-7.0) 10/09/17 04:30 Baso % (Auto) 0.6 % (0.0-3.0) 10/09/17 04:30 Immature Gran # (Auto) 0.1 (0.0-1.0) 10/09/17 04:30 Neut # (Auto) 3.9 K/ul (2.0-6.9) 10/09/17 04:30 Lymph # (Auto) 4.4 K/uL (0.60-3.4) H 10/09/17 04:30 Spink # (Auto) 0.8 K/uL (0.4-2.0) 10/09/17 04:30 Eos # (Auto) 0.3 K/ul (0.0-0.7) 10/09/17 04:30 Baso # (Auto) 0.1 K/uL (0-0.2) 10/09/17 04:30 Puncture Site R rad 10/07/17 13:00 O2 Saturation 98.0 % (95-100) 10/07/17 13:00 ABG pH 7.567 (7.35-7.45) H* 10/07/17 13:00 ABG pCO2 23.0 mmHg (35-45) L 10/07/17 13:00 ABG pO2 80.0 mmHg (85-100) L 10/07/17 13:00 ABG HCO3 20.9 (22.0-26.0) L 10/07/17 13:00 ABG Total CO2 22 (22.0-28.0) 10/07/17 13:00 ABG Base Excess -1 (-2.0-2.0) 10/07/17 13:00 Edmundo Test + 10/07/17 13:00 FiO2 % 21.0 % 10/07/17 13:00 Sodium 141 mmol/L (136-145) 10/08/17 04:45 Potassium 4.4 mmol/L (3.5-5.10) 10/08/17 04:45 Chloride 106 mmol/L (98-107) 10/08/17 04:45 Carbon Dioxide 26 mmol/L (21-32) 10/08/17 04:45 Anion Gap 13.4 10/08/17 04:45 BUN 17 mg/dL (7-18) 10/08/17 04:45 Creatinine 1.13 mg/dL (0.60-1.30) 10/08/17 04:45 Estimated GFR (MDRD) 50.00 mL/min 10/08/17 04:45 BUN/Creatinine Ratio 15.04 10/08/17 04:45 Glucose 175 mg/dL (70-110) H D 10/08/17 04:45 Hemoglobin A1c 8.5 (4.8-6.0) H 10/07/17 17:26 Calcium 9.4 mg/dL (8.2-10.2) 10/08/17 04:45 Total Bilirubin 0.4 mg/dL (0.00-1.20) 10/08/17 04:45 AST 23 U/L (15-37) D 10/08/17 04:45 ALT 40 U/L (12-78) 10/08/17 04:45 Alkaline Phosphatase 96 U/L (42-98) 10/08/17 04:45 Total Protein 7.1 g/dL (6.4-8.2) 10/08/17 04:45 Albumin 3.0 g/dL (3.4-5.0) L 10/08/17 04:45 Globulin 4.1 03/15/18 04:45 Albumin/Globulin Ratio 0.73 10/08/17 04:45 Urine Color Yellow (YELLOW) 10/08/17 13:20 Urine Clarity Clear (CLEAR) 10/08/17 13:20 Urine pH 5.5 (5-9) 10/08/17 13:20 Ur Specific [place] 1.015 (1.005-1.030) 10/08/17 13:20 Urine Protein Negative (NEGATIVE) 10/08/17 13:20 Urine Glucose (UA) Negative (NEGATIVE) 10/08/17 13:20 Urine Ketones Negative (NEGATIVE) 10/08/17 13:20 Urine Blood Negative (NEGATIVE) 10/08/17 13:20 Urine Nitrite Negative (NEGATIVE) 10/08/17 13:20 Urine Bilirubin Negative (NEGATIVE) 10/08/17 13:20 Urine Urobilinogen 0.2 (0.2) 10/08/17 13:20 Ur Leukocyte Esterase Trace (NEGATIVE) 10/08/17 13:20 Urine Microscopic RBC 2-5 (0-2) 10/07/17 16:10 Urine Microscopic WBC 0-2 (0-2) 10/08/17 13:20 Ur Squamous Epith Cells Not present (0-5) 10/08/17 13:20 Urine Bacteria 1+ (NOT PRESENT) 10/07/17 16:10 Urine Mucus Trace (NOT PRESENT) 10/07/17 16:10 Acetone, Qual N (NONE) 10/07/17 17:26 BUN/CR Trends 10/07/17 10/08/17 Range/Units 13:05 04:45 BUN 16 17 (7-18) mg/dL Creatinine 1.50 H 1.13 (0.60-1.30) mg/dL H/H Trends 10/07/17 10/08/17 10/09/17 Range/Units 13:05 04:45 04:30 Hgb 13.0 11.2 L 10.4 L (12.0-16.0) g/dl Hct 39.4 35.0 L 33.3 L (37.0-47.0) % WBC Trends 10/07/17 10/08/17 10/09/17 Range/Units 13:05 04:45 04:30 WBC 13.73 H 12.80 H 9.50 (4.6-10.2) K/ul Microbiology 10/07/17 18:00 Sputum - Expectorated Sputum Sputum Culture - Final: Negative 10/07/17 16:10 Urine,Random Urine Culture - Final: Negative 10/07/17 17:26 Blood Blood Culture - Preliminary NEGATIVE AFTER 1 DAY. 10/07/17 14:00 Blood Blood Culture - Preliminary NEGATIVE AFTER [address] chest: Lower lobe left and possibly right lower lobe pneumonia. F/U CT in 3 months recommended. Pending Labs: BHB, Sputum/Blood culture Final read. Education Provided to Patient and Family: 1. Weight loss/full time consulted during hospital stay. 2. Incentive spirometry 3. Prescriptions 4. Steroid R/B/A, risks on DM, GI issues, bone health. 5. F/U appt. 6. Pneumonia 7. DM education Follow-ups: 1. Dr. Conway office as outpatient in 1 week. 2. Set up for sleep study as outpatient 3. Repeat CBC in 1 week to monitor anemia. Disposition: HOME SELF-CARE Hospital Course: Hospital course: Day of Admit: Admitted on 10/07/17 with bilateral Pneumonia lower lobes by CT, A1C was markedly elevated, OSCAR, chronic back pain due for surgery in just a few weeks and chronic opiate use, multiple abx allergies/classes of abx. . She was seen in my office x2 early september. She was treated as pneumonia in 07/[address] but CX[address] was negative. CT shows bilateral LL pneumonia, atelectasis is on ddx as well. Remained afebrile. Heckerling rule discussed and she had >8% chance of pneumonia. Admitted to hospital with multiple allergies to include FQ and keflex (intolerance not allergy). Pharmacy was contacted personally and we reviewed cephalosporins. It was felt that 3rd generation had enough of a difference in side chains that she should be fine on cephalosporin. We started her on cefdinir PO 300 mg BID and azithromycin 500 IV daily. She was given NS 75ml/hour day of admit and half of second day. We started her on insulin at night 10 units lantus and 4 units of humalog with correction. Metformin stopped , NSaids stopped. At that point I discovered that she had not alerted me to the increased use of NSAIDS and the fact that she had stopped her metformin. I discussed with her that could be why she is having increased glucose and decreased renal function. She had ketones on urine ?dehydration, ?Jardiance. Blood ketones so far were negative but we are still waiting on BHB from send out. Hospital Day 1: Uneventful, tolerated abx. Labs showed dilutional decrease in WBC/HGB/ Platelet. Glucose much more controlled. Slept poorly, did not need anxiety meds. Pain controlled with home meds. O2 remained stable. Sputum culture collected, repeat UA to eval for ketones. Blood cultures negative, sputum culture negative, repeat UA was negative. Continued abx po cefdinir, IV azithromycin, insulin, home meds. Overnight O2 did drop. Electrical [employer]ic met with patient. I Discussed R/B/A to insulin, patient refused. Discussed R/B/A of GLP-1 , refused. I do not want to use SGLT-2 or januvia with recent history. We will thus talk about d/c on metformin and glipizide XL. R/B/a to these d/w patient. Renal function is better, metformin is reasonable. Hospital Day 2: This am, am of d/c I talked with the nurse and she had no issues ON, slept better than she has in weeks. The patient did have an O2 drop to 89 overnight and O2 order was started. She felt fine/comfortable. This am she notes she has slept poor for 2 weeks, longer than that she feels suffocated when lying supine. With nurse present, we discussed daytime fatigue and she reported issues with am DESOUZA at times and with daytime somnolence and feeling fatigued. We talked about outpatient sleep study and she liked this idea. Telemetery remained NS throughout stay. Labs reviewed with patient this am. Her CBC continues to show signs of dilutional decline with her WBC from 12.8 to 9.5 and Hgb from 11.2 to 10.4 and platelet from 261 to 249. Sputum culture so far neg, blood cultures x 2 negative, UA repeat 10/08/17 pm was normal w/o Ketones and glucose. Acetone during stay was negative. Sugars are better with basal/bolus/ correctional insulin. She does not want insulin as outpatient, nothing injectable. She has been on dvt prophy. We talked about CT PE protocol but she does not feel COLE, has some SOA from the pneumonia, but o2 other than at night and that one reading has been normal, with normal HR/BP. Remained afebrile overnight. I/O reviewed with her and her rate of 0.72 ml/kg/hr remained good. Net fluid balance of +1454 over hospital stay. USing incentive spirometry. She was out of bed nearly entire day yesterday. We talked about walking with nursing this am to see if O2 may be needed. We will change the abx from IV azithromycin to PO this am, continue cefdinir. I will continue abx for a total of 5 days. Tolerating diet, sugars better, no edema, SOA is better. She is ready to go home. Accucheck this am 145. Up with nursing to ambulate at 8-8:20 and O2 remained 97% RA normal gait, normal feeling, no SOA, no COLE, felt great, good energy. She is ready to go home. Day of discharge physical exam noted above and improved with breathing, comfort , sugars. Anemia is present, suspect ?Sleep apnea. Will set up for outpt sleep study, repeat CBC/CMP in 1 week. Resume home pain meds. Plan: 1. Diabetes 2 A1C goal <7%: Stop insulin per patient request. Resume metformin 1000 BID, start Glipizide XL 2.5mg daily with am meal. If she does not eat she does not take that pill. R/B/A to this d/w patient and hypoglycemia is real issue. - Glipizide XL 2.5mg daily - Metformin 1000 mg PO BID - Daily sugar check in the am Keep log bring to future visits. 2. Pneumonia: Finish total of 5 day course of abx. Albuterol inhaler PRN home med to resume. Education provided. Spiriva respimat 2 puff daily to continue. Robitussin diabetic recommended. - Finish round of abx through the weekend 3. Overnight hypoxemia: Sleep study outpatient. 4. Anemia: Repeat CBC 1 week - Ordered CBC 1 week 5. Chronic back pain: Meet with ortho surgery and consider delay of surgery 2-4 weeks. - Continue outpatient pain medications.
[2017-10-09] MEDS: PERCOCET 7.5-325 PO PRN (08:44)
[2017-10-09] MEDS: OMNICEF PO SCH (08:44)
[2017-10-09] MEDS: HUMALOG SUBCUT SCH (08:44)
[2017-10-09] MEDS: LOVENOX SUBCUT SCH (08:46)
[2017-10-09] MEDS ORDERED: ZITHROMAX PO SCH (09:00)
[2017-10-09 10:17] VITALS: BP 115/68; TEMP 97.5
== END 2017-10-09 11:35 | disposition home or self-care (01) | DRG 194 ==
LOC: ED 12:33 → MEDSURG A 14:15
PROVIDERS: ADMIT Family Medicine; ATTEND Family Medicine
DX: J18.9 Pneumonia, unspecified organism (principal); N17.9 Acute kidney failure, unspecified; E11.65 Type 2 diabetes mellitus with hyperglycemia; D72.829 Elevated white blood cell count, unspecified; E66.9 Obesity, unspecified; G89.29 Other chronic pain; M54.42 Lumbago with sciatica, left side; M25.552 Pain in left hip; D64.9 Anemia, unspecified; R05 Cough; K21.9 Gastro-esophageal reflux disease without esophagitis; R09.02 Hypoxemia; Z79.84 Long term (current) use of oral hypoglycemic drugs; Z79.891 Long term (current) use of opiate analgesic; Z79.899 Other long term (current) drug therapy; Z88.1 Allergy status to other antibiotic agents; Z68.32 Body mass index [BMI] 32.0-32.9, adult; Z20.5 Contact with and (suspected) exposure to viral hepatitis
CPT/HCPCS: 36415; 80053; 81001; 82009; 82803; 82962; 83036; 85025; 87040; 87070; 87086; 94150; 94640; 97802; 99223; 99233; 99239; 99284

== ENCOUNTER 2017-10-23 11:23 | Outpatient (CLI) | END 2017-10-23 11:24 | LOC: LAB 11:23 | PROVIDERS: ATTEND Family Medicine | DX: D64.9 Anemia, unspecified (principal); N17.9 Acute kidney failure, unspecified; N18.9 Chronic kidney disease, unspecified; E11.9 Type 2 diabetes mellitus without complications | CPT/HCPCS: 36415; 80053; 85025 ==

== ENCOUNTER 2018-02-26 11:59 | Outpatient (CLI) ==
--- NOTE | 2018-02-26 13:09 | DI ---
EXAM: PA and lateral views of the chest HISTORY: Bronchitis COMPARISON: Chest x-ray 09/28/2017 FINDINGS: The cardiomediastinal silhouette is normal. There is no pneumothorax or pleural effusion. There is no consolidation, nodule or mass. The osseous structures are stable. There are surgical changes of prior cholecystectomy. IMPRESSION: No acute cardiopulmonary process
--- NOTE | 2018-02-26 13:12 | DI ---
Exam: Four views of the left ribs. Comparison: CT chest performed 10/07/2017. Reason for exam: Pleurodynia FINDINGS: No pneumothorax, pleural effusion, or focal consolidation. The imaged osseous structures appear grossly unremarkable. No displaced left-sided rib fractures are seen. Impression: No displaced left-sided rib fractures. No acute cardiopulmonary findings in the left hemithorax
== END 2018-02-26 12:00 | disposition home or self-care (01) ==
LOC: LAB 11:59
PROVIDERS: ATTEND Family Medicine
DX: R07.81 Pleurodynia (principal); I10 Essential (primary) hypertension; E78.5 Hyperlipidemia, unspecified; E11.9 Type 2 diabetes mellitus without complications
CPT/HCPCS: 36415; 80053; 80061; 83036; 85025

== ENCOUNTER 2018-04-13 09:49 | Outpatient (CLI) ==
--- NOTE | 2018-04-13 10:17 | DI ---
EXAM: Two views of the chest. History: Pneumonia Comparison: Chest radiograph 02/26/2018 Findings: Heart size is normal. There is new right lower lung consolidation. No appreciable pleura l fluid and no pneumothorax. No acute osseous abnormalities. Impression: New right lower lung pneumonia. Follow-up recommended.
== END 2018-04-13 09:50 | disposition home or self-care (01) ==
LOC: RAD 09:49
PROVIDERS: ATTEND Family Medicine
DX: R06.03 Acute respiratory distress (principal); J40 Bronchitis, not specified as acute or chronic; Z87.01 Personal history of pneumonia (recurrent)